=== PATIENT | female | born 1945 | race Hispanic/Latino ===

== ENCOUNTER 2017-06-26 17:36 | Emergency (ER) | payer OTHER ==
[2017-06-26 17:54] VITALS: BP 171/78
[2017-06-26] MEDS ORDERED: DECADRON IV ONE (19:25)
[2017-06-26] MEDS ORDERED: DECADRON ONE (19:25)
--- NOTE | 2017-06-26 19:34 | Emergency Department Report ---
HPI - General Chief Complaint: Allergic Reaction Time Seen by Provider: 06/26/17 19:14 - HPI HPI: 71-year-old female comes to the emergency room stating that she was stung last night approximately midnight by a red wasp. Nakul and states that she has taken 3 Benadryl 25 mg apiece since noon today without much relief. Patient states the swelling and redness in her hand and arm has gotten worse and now. Patient reports a past medical history of hypothyroidism and hypercholesterolemia. Patient reports that this swelling is about the same after taking the Benadryl. ED Past Medical Hx - Past Medical History Additional medical history: hypothyroid, high colesterol - Surgical History Additional Surgical History: 3 c sections - Social History Smoking Status: Never Smoker Substance Use Type: None - Medications Home Medications: Home Medications Medication Instructions Recorded Confirmed Last Taken Type Loratadine [Claritin] 10 mg PO DAILY #10 tablet 06/26/17 Unknown Rx ED Review of Systems ROS: Stated complaint: INSECT BITE LEFT HAND Other details as noted in HPI Constitutional: denies: chills, fever Eyes: denies: eye pain, eye discharge, vision change ENT: denies: ear pain, throat pain Respiratory: denies: cough, shortness of breath, wheezing Cardiovascular: denies: chest pain, palpitations Endocrine: no symptoms reported Gastrointestinal: denies: abdominal pain, nausea, diarrhea Genitourinary: denies: urgency, dysuria, discharge Musculoskeletal: denies: back pain, joint swelling, arthralgia Skin: rash (left arm), change in color (left forearm redness) Neurological: denies: headache, weakness, paresthesias Psychiatric: denies: anxiety, depression Hematological/Lymphatic: denies: easy bleeding, easy bruising Physical Exam - Physical Exam Vital Signs: Vital Signs 06/26/17 17:49 Temperature 96.8 F L Pulse Rate 72 Respiratory 18 Rate Blood Pressure 171/78 [Right] O2 Sat by Pulse 98 Oximetry Physical Exam: GENERAL APPEARANCE: Well developed, well nourished, in no acute distress. SKIN: Inspection of the skin reveals left forearm erythematous with mildly edematous non-indurated no streaking HEENT: The sclerae were anicteric and conjunctivae were pink and moist. Extraocular movements were intact and pupils were equal, round, and reactive to light with normal accommodation. External inspection of the ears and nose showed no scars, lesions, or masses. NECK: Supple and symmetric. There was no thyroid enlargement, and no tenderness , or masses were felt. CHEST: Normal AP diameter and normal contour without any kyphoscoliosis. LUNGS: Auscultation of the lungs revealed normal breath sounds without any other adventitious sounds or rubs. CARDIOVASCULAR: There was a regular rate and rhythm without any murmurs, gallops , rubs. MUSCULOSKELETAL: Gait was normal. EXTREMITIES: No cyanosis, clubbing or edema. NEUROLOGIC: Alert and oriented x 3. Normal affect. Gait was normal. ED Course Vital Signs 06/26/17 17:49 Temperature 96.8 F L Pulse Rate 72 Respiratory 18 Rate Blood Pressure 171/78 [Right] O2 Sat by Pulse 98 Oximetry ED Medical Decision Making - Medical Decision Making Patient has been evaluated by this provider fast track. I discussed the patient can give her a shot of dexamethasone 4 mg IM. Discussed patient and she can follow with her primary care provider. She can continue taking Benadryl or Claritin 10 mg by mouth daily. Patient verbalized understanding. Critical care attestation.: If time is entered above; I have spent that time in minutes in the direct care of this critically ill patient, excluding procedure time. ED Disposition Clinical Impression: Allergic reaction to insect sting Qualifiers: Encounter type: initial encounter Injury intent: undetermined intent Qualified Code(s): T63.484A - Toxic effect of venom of other arthropod, undetermined, initial encounter Disposition: DC-01 TO HOME OR SELFCARE Is pt being admited?: No Does the pt Need Aspirin: No Condition: Stable Instructions: Insect Bite or Sting (ED) Additional Instructions: Please take the Claritin as prescribed. Daily. Return to the emergency room if he has any shortness of breathing difficulty swallowing or worsening of the swelling. Prescriptions: Loratadine [Claritin] 10 mg PO DAILY #10 tablet Referrals: PRIMARY CARE, [Primary Care Provider] - 3-5 Days Henok Olson [Other] - 3-5 Days
== END 2017-06-26 19:30 | disposition home or self-care (01) ==
LOC: ED 17:36
DX: M79.89 Other specified soft tissue disorders (principal); T63.441A Toxic effect of venom of bees, accidental (unintentional), initial encounter; E78.00 Pure hypercholesterolemia, unspecified; E03.8 Other specified hypothyroidism; Y92.89 Other specified places as the place of occurrence of the external cause
CPT/HCPCS: 96374; 99282; J1100